=== PATIENT | female | born 1935 | race Hispanic/Latino ===

== ENCOUNTER 2021-04-02 22:35 | Emergency (ER) | payer MEDICARE ==
[~2021-04-02] VITALS: Ht 137.2 cm; Wt 49.9 kg
[~2021-04-02 22:35] MED LIST: BACITRACIN 3.5 GM TUBE OP ONE
[2021-04-03] MEDS ORDERED: TETANUS/DIPHTHERIA TOXOID [ADULT] 0.5 ML VIAL IM ONE (00:30)
[2021-04-03] MEDS ORDERED: BACITRACIN 3.5 GM TUBE OD SCH (00:30)
[2021-04-03] MEDS ORDERED: AMOX/CLAV 500/125MG TAB PO ONE (00:30)
[2021-04-03 00:46] VITALS: BP 148/63
[2021-04-03] MEDS ORDERED: AMOX-426 PO (01:11)
== END 2021-04-03 00:46 | disposition home or self-care (01) ==
LOC: EDH 22:35
DX: S61.452A Open bite of left hand, initial encounter (principal); L03.114 Cellulitis of left upper limb; I10 Essential (primary) hypertension; E11.9 Type 2 diabetes mellitus without complications; Z88.1 Allergy status to other antibiotic agents; Z79.899 Other long term (current) drug therapy; Z95.5 Presence of coronary angioplasty implant and graft; Z79.01 Long term (current) use of anticoagulants; W55.01XA Bitten by cat, initial encounter; Y93.89 Activity, other specified; Y92.89 Other specified places as the place of occurrence of the external cause; Y99.8 Other external cause status
CPT/HCPCS: 73130; 90471; 90714

== ENCOUNTER 2021-11-28 16:07 | Emergency (ER) | payer MEDICARE ==
[~2021-11-28] VITALS: Ht 142.2 cm; Wt 51.3 kg
[~2021-11-28 16:07] MED LIST changes: +AMOX-426 PO; -BACITRACIN 3.5 GM TUBE OP ONE
[2021-11-28 22:52] VITALS: BP 140/64
== END 2021-11-28 22:48 | disposition home or self-care (01) ==
LOC: EDH 16:07
DX: M47.817 Spondylosis without myelopathy or radiculopathy, lumbosacral region (principal); R07.81 Pleurodynia; M25.551 Pain in right hip; I25.10 Atherosclerotic heart disease of native coronary artery without angina pectoris; I10 Essential (primary) hypertension; E11.9 Type 2 diabetes mellitus without complications; E78.00 Pure hypercholesterolemia, unspecified; Z95.1 Presence of aortocoronary bypass graft; W18.39XA Other fall on same level, initial encounter; Y93.89 Activity, other specified; Y92.89 Other specified places as the place of occurrence of the external cause; Y99.8 Other external cause status
CPT/HCPCS: 71100; 72100; 73502

== ENCOUNTER → 2022-08-17 | Outpatient (CLI) | payer MEDICARE | END | disposition home or self-care (01) | LOC: SHCH 09:37 | PROVIDERS: ATTEND Internal Medicine Cardiovascular Disease | DX: I08.2 Rheumatic disorders of both aortic and tricuspid valves (principal); I27.20 Pulmonary hypertension, unspecified; I21.3 ST elevation (STEMI) myocardial infarction of unspecified site; E78.5 Hyperlipidemia, unspecified | CPT/HCPCS: 93306 ==